=== PATIENT | male | born 1955 | race Asian ===

== ENCOUNTER 2022-09-06 17:17 | Inpatient (IN) | payer BC, MEDICAID ==
[~2022-09-06] VITALS: Ht 167.6 cm; Wt 82.8 kg
[~2022-09-06 17:17] MED LIST: ALLO-45 PO; AMLO-258 PO; ASPI-1450 PO; ATEN100T92 PO
[2022-09-06] MEDS ORDERED: SODIUM CHLORIDE 0.9% 100 ML ONE (17:21)
[2022-09-06] MEDS ORDERED: IOHEXOL 350 MG/ML 100 ML VIAL ONE (17:21)
[2022-09-06 17:41] LABS: BASOPHILS % (AUTO) 0.2 % (0.0-2.0); EOSINOPHILS % (AUTO) 0.2 % (1.0-6.0); HEMOGLOBIN 17.8 g/dL (13.5-17.5); LYMPHOCYTES # (AUTO) 1.2 K/uL (1.0-4.8); LYMPHOCYTES % (AUTO) 7.8 % (22.0-44.0); MEAN CORPUSCULAR HEMOGLOBIN 29.3 pg (26.0-34.0); MEAN CORPUSCULAR HGB CONC 32.1 G/dL (31.0-37.0); MEAN CORPUSCULAR VOLUME 91 fL (80-100); MONOCYTES # (AUTO) 1.5 K/uL (0.1-1.0); MONOCYTES % (AUTO) 9.6 % (2.0-9.0); NEUTROPHILS # (AUTO) 12.4 K/uL (1.8-7.7); NEUTROPHILS % (AUTO) 82.2 % (40.0-70.0); PLATELET COUNT (AUTO) 267 K/uL (150-450); RED BLOOD CELL COUNT(AUTO) 6.08 MIL/uL (4.50-5.90); RED CELL DISTRIBUTION WIDTH 14.8 % (11.5-14.5)
[2022-09-06 17:48] LABS: CALCIUM, TOTAL 8.8 mg/dL (8.8-10.5); CREATININE 1.37 mg/dL (0.60-1.30); POTASSIUM 4.2 mmol/L (3.5-5.1)
[2022-09-06 17:52] LABS: INR 1.2 (0.9-1.1); PROTHROMBIN TIME 12.6 SEC (9.4-11.6)
[2022-09-06 17:54] LABS: ALBUMIN 3.7 g/dL (3.4-5.0); BILIRUBIN,TOTAL 2.5 mg/dL (0.1-1.0); TOTAL PROTEIN, SERUM 8.3 g/dL (6.4-8.2)
[2022-09-06 18:06] LABS: HEMATOCRIT 55.5 % (41-53)
[2022-09-06 18:39] LABS: COVID AG,FIA SOURCE NASOPHARYNGEAL
[2022-09-06] MEDS ORDERED: ASPIRIN 300 MG RECTAL SUPPOSITORY PR ONE ×2 (19:15→19:53)
[2022-09-06] MEDS ORDERED: ACETAMINOPHEN 325 MG TABLET PO PRN (19:15)
[2022-09-06] MEDS ORDERED: ASPIRIN 81 MG CHEWABLE TABLET PO ONE (19:15)
[2022-09-06] MEDS: METOPROLOL TARTRATE 5 MG/5 ML VIAL IVP SCH (20:00)
[2022-09-06 20:28] LABS: APPEARANCE,URINE CLEAR (CLEAR); BILIRUBIN,URINE NEGATIVE (NEGATIVE); GLUCOSE, URINE (UA) NEGATIVE (NEGATIVE); KETONES,URINE 40-60 mg/dL (NEGATIVE); LEUKOCYTE ESTERASE ,URINE NEGATIVE (NEGATIVE); NITRATE,URINE NEGATIVE (NEGATIVE); OCCULT BLOOD,URINE MODERATE (NEGATIVE); PH,URINE 6.5 (5.0-8.0); PROTEIN,URINE 100-200,SEE CONFIRM mg/dL (NEGATIVE); UROBILINOGEN,URINE <=1.0 mg/dL (<=1.0)
[2022-09-06 20:33] LABS: SPECIFIC GRAVITIY, URINE > 1.050 (1.003-1.030)
[2022-09-06 20:57] LABS: BACTERIA,URINE None Seen /HPF (None Seen); SQUAMOUS EPITHELIAL CELL,UR Few /LPF (None Seen); SULFOSALICYLIC ACID,URINE 1+ (Negative); WBC,URINE None Seen /HPF (0-5)
[2022-09-06 21:06] LABS: AMPHET/METH SCREEN,URINE NEGATIVE (NEGATIVE); BARBITURATE SCREEN, URINE NEGATIVE (NEGATIVE); BENZODIAZEPINES SCREEN,URINE NEGATIVE (NEGATIVE); CANNABINOID SCREEN,URINE NEGATIVE (NEGATIVE); COCAINE SCREEN,URINE NEGATIVE (NEGATIVE); METHADONE SCREEN, URINE NEGATIVE (NEGATIVE); OPIATE SCREEN,URINE NEGATIVE (NEGATIVE); PHENCYCLIDINE SCREEN,URINE NEGATIVE (NEGATIVE)
[2022-09-06] MEDS ORDERED: SODIUM CHLORIDE 0.9% 1,000 ML IV ONE (21:45)
[2022-09-06 22:03] VITALS: BP 163/103
[2022-09-06 22:40] VITALS: BP 163/103
[2022-09-07] VITALS: BP 113/88
[2022-09-07] MEDS: HEPARIN SODIUM,PORCINE 5,000 UNITS/ML VIAL SQ SCH ×3 (00:13→16:23)
[2022-09-07] MEDS: METOPROLOL TARTRATE 5 MG/5 ML VIAL IVP SCH ×2 (00:13→06:53)
[2022-09-07 06:12] VITALS: BP 157/98
[2022-09-07] MEDS: ASPIRIN 81 MG CHEWABLE TABLET PO SCH (08:00)
[2022-09-07 08:24] VITALS: BP 148/86
[2022-09-07 08:52] LABS: ANION GAP 14 mmol/L (8-16); CARBON DIOXIDE 20 mmol/L (22-29); CHLORIDE 104 mmol/L (98-107); CREATININE 1.12 mg/dL (0.60-1.30); GLOMERULAR FILTR. RATE CALC > 60 mL/min (>60); GLUCOSE,RANDOM 74 mg/dL (70-110); POTASSIUM 3.8 mmol/L (3.5-5.1); SODIUM SERUM 138 mmol/L (136-145); UREA NITROGEN, BLOOD 24 mg/dL (7-18)
[2022-09-07 08:58] LABS: CHOL/HDL RATIO 2.6 (4.2-7.3)
[2022-09-07 09:43] LABS: CREATINE KINASE, TOTAL ONLY 3858 U/L (39-308)
[2022-09-07] MEDS ORDERED: METOPROLOL TARTRATE 25 MG TABLET PO SCH (12:00)
[2022-09-07 12:08] VITALS: BP 141/109
[2022-09-07 12:18] LABS: FREE T4 (FREE THYROXINE) 1.53 ng/dL (0.76-1.46)
[2022-09-07 12:25] LABS: B-TYPE NATRIURETIC PEPTIDE 135 pg/mL (0-100)
[2022-09-07] MEDS: ALLOPURINOL 100 MG TABLET PO SCH (13:06)
[2022-09-07] MEDS: SODIUM CHLORIDE 0.9% 1,000 ML IV SCH (14:50)
[2022-09-07 16:15] VITALS: BP 144/90
[2022-09-07] MEDS: METOPROLOL TARTRATE 25 MG TABLET PO SCH (20:21)
[2022-09-07 20:36] VITALS: BP 141/85
[2022-09-07] MEDS ORDERED: ATORVASTATIN CALCIUM 40 MG TABLET PO SCH (21:00)
[2022-09-07] MEDS ORDERED: DILTIAZEM HCL 5 MG/ML 5 ML VIAL IVP ONE (21:00)
[2022-09-08] MEDS: SODIUM CHLORIDE 0.9% 1,000 ML IV SCH ×2 (00:02→15:45)
[2022-09-08] MEDS: HEPARIN SODIUM,PORCINE 5,000 UNITS/ML VIAL SQ SCH ×3 (00:09→15:42)
[2022-09-08 00:50] VITALS: BP 145/88
[2022-09-08 05:26] VITALS: BP 146/84
[2022-09-08 06:29] LABS: BASOPHILS % (AUTO) 0.4 % (0.0-2.0); EOSINOPHILS % (AUTO) 1.2 % (1.0-6.0); HEMATOCRIT 50.3 % (41-53); HEMOGLOBIN 16.5 g/dL (13.5-17.5); LYMPHOCYTES # (AUTO) 1.2 K/uL (1.0-4.8); LYMPHOCYTES % (AUTO) 13.9 % (22.0-44.0); MEAN CORPUSCULAR HEMOGLOBIN 30.1 pg (26.0-34.0); MEAN CORPUSCULAR HGB CONC 32.8 G/dL (31.0-37.0); MEAN CORPUSCULAR VOLUME 92 fL (80-100); NEUTROPHILS # (AUTO) 6.3 K/uL (1.8-7.7); NEUTROPHILS % (AUTO) 72.5 % (40.0-70.0); PLATELET COUNT (AUTO) 208 K/uL (150-450); RED BLOOD CELL COUNT(AUTO) 5.48 MIL/uL (4.50-5.90); RED CELL DISTRIBUTION WIDTH 14.6 % (11.5-14.5)
[2022-09-08 06:49] LABS: ALANINE AMINOTRANSFERASE 38 U/L (12-78); ALBUMIN 2.8 g/dL (3.4-5.0); ALKALINE PHOSPHATASE 60 U/L (46-116); ANION GAP 10 mmol/L (8-16); ASPARTATE AMINOTRANSFERASE 72 U/L (15-37); BILIRUBIN,TOTAL 1.6 mg/dL (0.1-1.0); CALCIUM, TOTAL 7.7 mg/dL (8.8-10.5); CARBON DIOXIDE 24 mmol/L (22-29); CHLORIDE 105 mmol/L (98-107); CREATININE 0.99 mg/dL (0.60-1.30); GLOMERULAR FILTR. RATE CALC > 60 mL/min (>60); GLUCOSE,RANDOM 100 mg/dL (70-110); POTASSIUM 3.3 mmol/L (3.5-5.1); SODIUM SERUM 139 mmol/L (136-145); TOTAL PROTEIN, SERUM 6.8 g/dL (6.4-8.2); UREA NITROGEN, BLOOD 17 mg/dL (7-18)
[2022-09-08 07:40] VITALS: BP 132/90
[2022-09-08] MEDS: ASPIRIN 81 MG CHEWABLE TABLET PO SCH (08:36)
[2022-09-08] MEDS: METOPROLOL TARTRATE 25 MG TABLET PO SCH ×2 (08:37→21:53)
[2022-09-08] MEDS: ALLOPURINOL 100 MG TABLET PO SCH (08:37)
[2022-09-08 11:11] VITALS: BP 137/88
[2022-09-08 15:11] VITALS: BP 140/78
[2022-09-08] MEDS: DILTIAZEM HCL 30 MG TABLET PO SCH ×2 (15:42→18:00)
[2022-09-08 20:23] VITALS: BP 151/78
[2022-09-09] MEDS: DILTIAZEM HCL 30 MG TABLET PO SCH ×4 (00:13→16:56)
[2022-09-09] MEDS: HEPARIN SODIUM,PORCINE 5,000 UNITS/ML VIAL SQ SCH ×3 (00:13→16:55)
[2022-09-09 00:43] VITALS: BP 154/98
[2022-09-09] MEDS: SODIUM CHLORIDE 0.9% 1,000 ML IV SCH ×2 (05:43→16:56)
[2022-09-09 06:30] VITALS: BP 158/91
[2022-09-09 07:06] LABS: BASOPHILS % (AUTO) 0.4 % (0.0-2.0); EOSINOPHILS % (AUTO) 1.6 % (1.0-6.0); HEMATOCRIT 52.4 % (41-53); HEMOGLOBIN 17.5 g/dL (13.5-17.5); LYMPHOCYTES # (AUTO) 1.4 K/uL (1.0-4.8); LYMPHOCYTES % (AUTO) 16.4 % (22.0-44.0); MEAN CORPUSCULAR HEMOGLOBIN 30.4 pg (26.0-34.0); MEAN CORPUSCULAR HGB CONC 33.3 G/dL (31.0-37.0); MEAN CORPUSCULAR VOLUME 91 fL (80-100); MONOCYTES # (AUTO) 1.2 K/uL (0.1-1.0); MONOCYTES % (AUTO) 13.2 % (2.0-9.0); NEUTROPHILS % (AUTO) 68.4 % (40.0-70.0); PLATELET COUNT (AUTO) 205 K/uL (150-450); RED BLOOD CELL COUNT(AUTO) 5.74 MIL/uL (4.50-5.90); RED CELL DISTRIBUTION WIDTH 14.5 % (11.5-14.5)
[2022-09-09 07:40] VITALS: BP 132/88
[2022-09-09 07:47] LABS: ALANINE AMINOTRANSFERASE 39 U/L (12-78); ALKALINE PHOSPHATASE 64 U/L (46-116); ANION GAP 8 mmol/L (8-16); ASPARTATE AMINOTRANSFERASE 52 U/L (15-37); BILIRUBIN,TOTAL 1.6 mg/dL (0.1-1.0); CALCIUM, TOTAL 8.3 mg/dL (8.8-10.5); CARBON DIOXIDE 25 mmol/L (22-29); CHLORIDE 104 mmol/L (98-107); CREATINE KINASE, TOTAL ONLY 715 U/L (39-308); CREATININE 0.98 mg/dL (0.60-1.30); GLOMERULAR FILTR. RATE CALC > 60 mL/min (>60); GLUCOSE,RANDOM 101 mg/dL (70-110); POTASSIUM 3.6 mmol/L (3.5-5.1); SODIUM SERUM 137 mmol/L (136-145); TOTAL PROTEIN, SERUM 7.4 g/dL (6.4-8.2); UREA NITROGEN, BLOOD 11 mg/dL (7-18)
[2022-09-09] MEDS: ALLOPURINOL 100 MG TABLET PO SCH (08:52)
[2022-09-09] MEDS: METOPROLOL TARTRATE 25 MG TABLET PO SCH ×2 (08:53→20:48)
[2022-09-09] MEDS: ASPIRIN 81 MG CHEWABLE TABLET PO SCH (08:54)
[2022-09-09 11:38] VITALS: BP 131/88
[2022-09-09 15:00] VITALS: BP 138/91
[2022-09-09 20:03] VITALS: BP 155/92
[2022-09-10] MEDS: HEPARIN SODIUM,PORCINE 5,000 UNITS/ML VIAL SQ SCH ×3 (00:14→17:10)
[2022-09-10] MEDS: DILTIAZEM HCL 30 MG TABLET PO SCH ×4 (00:14→17:10)
[2022-09-10 00:22] VITALS: BP 147/96
[2022-09-10 04:39] VITALS: BP 156/92
[2022-09-10] MEDS: SODIUM CHLORIDE 0.9% 1,000 ML IV SCH ×2 (05:15→17:11)
[2022-09-10 07:06] LABS: BASOPHILS % (AUTO) 0.3 % (0.0-2.0); EOSINOPHILS % (AUTO) 1.6 % (1.0-6.0); HEMATOCRIT 49.7 % (41-53); LYMPHOCYTES # (AUTO) 1.3 K/uL (1.0-4.8); LYMPHOCYTES % (AUTO) 15.2 % (22.0-44.0); MEAN CORPUSCULAR HGB CONC 34.1 G/dL (31.0-37.0); MEAN CORPUSCULAR VOLUME 91 fL (80-100); MONOCYTES % (AUTO) 12.1 % (2.0-9.0); NEUTROPHILS % (AUTO) 70.8 % (40.0-70.0); PLATELET COUNT (AUTO) 205 K/uL (150-450); RED BLOOD CELL COUNT(AUTO) 5.47 MIL/uL (4.50-5.90); RED CELL DISTRIBUTION WIDTH 14.6 % (11.5-14.5)
[2022-09-10 07:23] LABS: ALANINE AMINOTRANSFERASE 40 U/L (12-78); ALKALINE PHOSPHATASE 64 U/L (46-116); ANION GAP 10 mmol/L (8-16); ASPARTATE AMINOTRANSFERASE 37 U/L (15-37); BILIRUBIN,TOTAL 1.6 mg/dL (0.1-1.0); CALCIUM, TOTAL 8.2 mg/dL (8.8-10.5); CARBON DIOXIDE 24 mmol/L (22-29); CHLORIDE 103 mmol/L (98-107); CREATININE 1.02 mg/dL (0.60-1.30); GLOMERULAR FILTR. RATE CALC > 60 mL/min (>60); GLUCOSE,RANDOM 102 mg/dL (70-110); POTASSIUM 3.5 mmol/L (3.5-5.1); SODIUM SERUM 137 mmol/L (136-145); TOTAL PROTEIN, SERUM 7.3 g/dL (6.4-8.2); UREA NITROGEN, BLOOD 12 mg/dL (7-18)
[2022-09-10 07:29] VITALS: BP 150/87
[2022-09-10] MEDS: ALLOPURINOL 100 MG TABLET PO SCH (09:06)
[2022-09-10] MEDS: ASPIRIN 81 MG CHEWABLE TABLET PO SCH (09:06)
[2022-09-10] MEDS: METOPROLOL TARTRATE 25 MG TABLET PO SCH ×2 (09:06→21:41)
[2022-09-10 11:56] VITALS: BP 133/91
[2022-09-10 16:00] VITALS: BP 133/91
[2022-09-10 20:00] VITALS: BP 149/100
[2022-09-10] MEDS ORDERED: ATORVASTATIN CALCIUM 40 MG TABLET PO SCH (21:00)
[2022-09-10] MEDS: ATORVASTATIN CALCIUM 40 MG TABLET PO SCH (21:40)
[2022-09-11] MEDS: HEPARIN SODIUM,PORCINE 5,000 UNITS/ML VIAL SQ SCH ×3 (00:25→17:08)
[2022-09-11] MEDS: DILTIAZEM HCL 30 MG TABLET PO SCH ×4 (00:25→17:08)
[2022-09-11 00:30] VITALS: BP 144/106
[2022-09-11 04:00] VITALS: BP 157/98
[2022-09-11] MEDS: SODIUM CHLORIDE 0.9% 1,000 ML IV SCH (05:01)
[2022-09-11 06:56] LABS: BASOPHILS % (AUTO) 0.2 % (0.0-2.0); EOSINOPHILS % (AUTO) 0.8 % (1.0-6.0); HEMATOCRIT 50.2 % (41-53); HEMOGLOBIN 16.9 g/dL (13.5-17.5); LYMPHOCYTES # (AUTO) 1.1 K/uL (1.0-4.8); LYMPHOCYTES % (AUTO) 11.2 % (22.0-44.0); MEAN CORPUSCULAR HEMOGLOBIN 30.5 pg (26.0-34.0); MEAN CORPUSCULAR HGB CONC 33.6 G/dL (31.0-37.0); MEAN CORPUSCULAR VOLUME 91 fL (80-100); MONOCYTES # (AUTO) 1.3 K/uL (0.1-1.0); MONOCYTES % (AUTO) 12.9 % (2.0-9.0); NEUTROPHILS # (AUTO) 7.5 K/uL (1.8-7.7); NEUTROPHILS % (AUTO) 74.9 % (40.0-70.0); PLATELET COUNT (AUTO) 211 K/uL (150-450); RED BLOOD CELL COUNT(AUTO) 5.53 MIL/uL (4.50-5.90); RED CELL DISTRIBUTION WIDTH 14.8 % (11.5-14.5)
[2022-09-11 07:32] LABS: ALANINE AMINOTRANSFERASE 40 U/L (12-78); ALBUMIN 2.8 g/dL (3.4-5.0); ALKALINE PHOSPHATASE 65 U/L (46-116); ANION GAP 9 mmol/L (8-16); ASPARTATE AMINOTRANSFERASE 30 U/L (15-37); CALCIUM, TOTAL 8.4 mg/dL (8.8-10.5); CARBON DIOXIDE 23 mmol/L (22-29); CHLORIDE 101 mmol/L (98-107); CREATINE KINASE, TOTAL ONLY 130 U/L (39-308); CREATININE 0.93 mg/dL (0.60-1.30); GLOMERULAR FILTR. RATE CALC > 60 mL/min (>60); GLUCOSE,RANDOM 100 mg/dL (70-110); POTASSIUM 3.4 mmol/L (3.5-5.1); SODIUM SERUM 133 mmol/L (136-145); TOTAL PROTEIN, SERUM 7.3 g/dL (6.4-8.2); UREA NITROGEN, BLOOD 12 mg/dL (7-18)
[2022-09-11 08:25] VITALS: BP 154/88
[2022-09-11] MEDS: ALLOPURINOL 100 MG TABLET PO SCH (09:13)
[2022-09-11] MEDS: ASPIRIN 81 MG CHEWABLE TABLET PO SCH (09:13)
[2022-09-11] MEDS: METOPROLOL TARTRATE 25 MG TABLET PO SCH ×2 (09:13→20:28)
[2022-09-11] MEDS ORDERED: POTASSIUM CHLORIDE 20 MEQ ER TABLET PO ONE (12:00)
[2022-09-11] MEDS: FAMOTIDINE 20 MG TABLET PO SCH ×2 (12:42→20:28)
[2022-09-11] MEDS: PredniSONE 10 MG TABLET PO SCH (12:42)
[2022-09-11 15:32] VITALS: BP 149/84
[2022-09-11 20:03] VITALS: BP 148/78
[2022-09-11] MEDS: ATORVASTATIN CALCIUM 40 MG TABLET PO SCH (20:28)
[2022-09-12] MEDS: DILTIAZEM HCL 30 MG TABLET PO SCH ×4 (00:38→18:35)
[2022-09-12] MEDS: HEPARIN SODIUM,PORCINE 5,000 UNITS/ML VIAL SQ SCH ×3 (00:38→16:57)
[2022-09-12 01:06] VITALS: BP 137/86
[2022-09-12 06:24] VITALS: BP 140/85
[2022-09-12 06:54] LABS: BASOPHILS % (AUTO) 0.2 % (0.0-2.0); EOSINOPHILS % (AUTO) 0.1 % (1.0-6.0); HEMATOCRIT 49.2 % (41-53); HEMOGLOBIN 16.9 g/dL (13.5-17.5); LYMPHOCYTES # (AUTO) 1.3 K/uL (1.0-4.8); LYMPHOCYTES % (AUTO) 11.6 % (22.0-44.0); MEAN CORPUSCULAR HEMOGLOBIN 31.1 pg (26.0-34.0); MEAN CORPUSCULAR HGB CONC 34.3 G/dL (31.0-37.0); MEAN CORPUSCULAR VOLUME 91 fL (80-100); MONOCYTES # (AUTO) 1.2 K/uL (0.1-1.0); MONOCYTES % (AUTO) 11.2 % (2.0-9.0); NEUTROPHILS # (AUTO) 8.6 K/uL (1.8-7.7); NEUTROPHILS % (AUTO) 76.9 % (40.0-70.0); PLATELET COUNT (AUTO) 230 K/uL (150-450); RED BLOOD CELL COUNT(AUTO) 5.43 MIL/uL (4.50-5.90); RED CELL DISTRIBUTION WIDTH 14.5 % (11.5-14.5)
[2022-09-12 07:23] VITALS: BP 137/85
[2022-09-12 08:55] LABS: ANION GAP 7 mmol/L (8-16); CALCIUM, TOTAL 8.7 mg/dL (8.8-10.5); CARBON DIOXIDE 25 mmol/L (22-29); CHLORIDE 100 mmol/L (98-107); CREATININE 1.12 mg/dL (0.60-1.30); GLOMERULAR FILTR. RATE CALC > 60 mL/min (>60); GLUCOSE,RANDOM 105 mg/dL (70-110); SODIUM SERUM 132 mmol/L (136-145); UREA NITROGEN, BLOOD 19 mg/dL (7-18)
[2022-09-12] MEDS ORDERED: ALLOPURINOL 100 MG TABLET PO SCH (09:00)
[2022-09-12] MEDS: FAMOTIDINE 20 MG TABLET PO SCH (09:33)
[2022-09-12] MEDS: PredniSONE 10 MG TABLET PO SCH (09:33)
[2022-09-12] MEDS: METOPROLOL TARTRATE 25 MG TABLET PO SCH (09:33)
[2022-09-12] MEDS: ALLOPURINOL 100 MG TABLET PO SCH (09:33)
[2022-09-12] MEDS: ASPIRIN 81 MG CHEWABLE TABLET PO SCH (09:33)
[2022-09-12 12:00] VITALS: BP 141/85
[2022-09-12 16:24] VITALS: BP 139/77
[2022-09-12] MEDS ORDERED: ALLO-97 PO (19:30)
[2022-09-12] MEDS ORDERED: ATOR40TA28 PO (19:31)
[2022-09-12] MEDS ORDERED: FAMO20 PO (19:32)
[2022-09-12] MEDS ORDERED: DILT30TA3 PO (19:32)
[2022-09-12] MEDS ORDERED: METO25 PO (19:34)
[2022-09-12] MEDS ORDERED: APIX5TAB PO (19:35)
[2022-09-12] MEDS ORDERED: PRED-729 PO (19:35)
== END 2022-09-12 19:20 | DRG 64 ==
LOC: EMS 17:17 → 5S 20:50
PROVIDERS: ADMIT Internal Medicine; ATTEND Internal Medicine
DX: I63.9 Cerebral infarction, unspecified (principal); R65.11 Systemic inflammatory response syndrome (SIRS) of non-infectious origin with acute organ dysfunction; N17.9 Acute kidney failure, unspecified; M62.82 Rhabdomyolysis; G81.91 Hemiplegia, unspecified affecting right dominant side; I48.91 Unspecified atrial fibrillation; I12.9 Hypertensive chronic kidney disease with stage 1 through stage 4 chronic kidney disease, or unspecified chronic kidney disease; N18.9 Chronic kidney disease, unspecified; E05.90 Thyrotoxicosis, unspecified without thyrotoxic crisis or storm; E78.5 Hyperlipidemia, unspecified; G89.29 Other chronic pain; R29.717 NIHSS score 17; S50.01XA Contusion of right elbow, initial encounter; R47.01 Aphasia; S62.91XA Unspecified fracture of right hand, initial encounter for closed fracture; T50.995A Adverse effect of other drugs, medicaments and biological substances, initial encounter
CPT/HCPCS: 70496; 70551; 71045; 73200; 76536; 76770; 80048; 80053; 80061; 80307; 81001; 81002; 82550; 83605; 83735; 83880; 84145; 84439; 84443; 84484; 85025; 85610; 87040; 92507; 92526; 92610; 93005; 93306; 97112; 97116; 97162; 97166; 97530; 97535; 99291; G0378; J1644; J3490; J7030; J7050; Q9967; 36415-L1; 36415-TC; 70450; 70450-TC; J7512; Z7610